=== PATIENT | female | born 1990 | race Caucasian/White ===

== ENCOUNTER 2024-08-28 11:17 | Emergency (ER) | payer MEDICARE, MEDICAID, SELFPAY ==
[2024-08-28] VITALS (38 sets, daily range): BP systolic 116–150; BP diastolic 67–105; PULSE 75–139; RESP 12–28; TEMP 36.9–37; O2SAT 96–100
--- NOTE | 2024-08-28 11:30 | RT.EKG_ITS ---
APPROVED REPORT Exam: Resting ECG Reason for Exam: high heart rate Patient Location: E HR:126 bpm ECG Measurements Heart Rate 126 AXIS PA 142 P 65 QRSd 93 QRS -9 QT 327 T 52 QTc 474 Conclusion Sinus tachycardia 126 no stemi
[2024-08-28 13:49] LABS: Abs Immature Grans 0.03 10^3/uL (0.0-0.06); Absolute Basophil Count 0.09 10^3/uL (0.0-0.2); Absolute Eosinophil Count 0.07 10^3/uL (0.0-0.7); Absolute Lymphocyte Count 3.29 10^3/uL (1.2-3.4); Absolute Monocyte Count 0.55 10^3/uL (0.1-0.8); Absolute Neutrophil Count 6.59 10^3/uL (1.2-6.7); Basophils % 0.8 %; Eosinophils % 0.7 %; HCT 43.6 % (36.0-46.0); HGB 15.2 g/dL (11.2-15.7); Immature Grans % 0.3 %; MCH 31.1 pg (27.0-33.0); MCHC 34.9 % (32.0-36.0); MCV 89 fL (80-95); MPV 9.6 fL (8.0-11.0); Monocytes % 5.2 %; Platelet Count 394 10^3/uL (130-400); RBC 4.88 10^6/uL (3.93-5.22); RDW 12.3 % (11.7-14.6); RDW-SD 40.3 fL; WBC 10.62 10^3/uL (4.4-10.8)
--- NOTE | 2024-08-28 14:09 | ED.GENADUL_ITS ---
Discharge Plan Disposition Patient Disposition: Home Condition: Good Discharge Details Clinical Impression: Postural orthostatic tachycardia syndrome [POTS] Primary Care Provider: Unknown,Unknown ED Provider: Eva Nunez Home Meds and New Rx's Prescriptions: Continued dextroamphetamine-amphetamine [Adderall XR] 25 mg capsule,extended release 24hr 25 mg PO DAILY Nurtec ODT 75 mg tablet,disintegrating 75 mg PO .as need PRN Rx Instructions: as a single dose clonazepam 0.25 mg tablet,disintegrating 0.25 mg PO DAILY ondansetron 4 mg tablet,disintegrating 4 mg PO Q6H cholecalciferol (vitamin D3) 25 mcg (1,000 unit) tablet 25 mcg PO DAILY Discharge Instructions Instructions: Orthostatic hypotension Additional Instructions: As we discussed, your labs are very reassuring here today. This includes your blood counts as well as your electrolytes, thyroid, liver, kidney. CT of your brain also look normal. I am concerned, based on how you responded with fluids, that you did have some dehydration and encourage you to continue continue doing increase your fluids. Please continue with previous recommendations regarding electrolyte supplementation continued care of your diagnoses. I have referred you to local primary care. Again, please discuss with them the need for your care team. If you develop any new or worsening symptoms please seek care urgently once again. Otherwise, please follow-up with primary care soon as possible. Discharge Data Discharge Date/Time-TO BE ENTERED AT DEPARTURE: 08/28/24 15:43 HPI General Date/Time Provider Initiated Documentation: 08/28/24 12:10 . Limitations to Documentation: no limitations . Information obtained by: patient, RN notes reviewed and old records reviewed (provided by patient) . History of Present Illness 33 year old F presents to the emergency department with the chief complaint of increased POTS symptoms, changes in these, on care team locally, described as moderate and similar to prior episodes, Quality is described as other (lightheaded, weak), Patient started experiencing this year(s) and it has been constant. No relieving factors improve symptom(s), No exacerbating factors reported . Patient notes headaches (associates with hx of migraines, none today), nausea/vomiting (nausea when pre-syncopal feeling) and weakness (generalized); denies chest pain, cough, fever/chills, loss of appetite, malaise, rash and shortness of breath. Patient did receive the following treatments prior to arrival, none Related Data Home Medications ?Medication ?Instructions ?Recorded ?Confirmed cholecalciferol (vitamin D3) 25 25 mcg PO DAILY 03/17/24 08/28/24 mcg (1,000 unit) tablet clonazepam 0.25 mg disintegrating 0.25 mg PO DAILY 03/17/24 08/28/24 tablet dextroamphetamine-amphetamine ER 25 mg PO DAILY 03/17/24 08/28/24 25 mg 24hr capsule,extend release (Adderall XR) ondansetron 4 mg disintegrating 4 mg PO Q6H 03/17/24 08/28/24 tablet rimegepant 75 mg disintegrating 75 mg PO .as need PRN 03/17/24 08/28/24 tablet (Nurtec ODT) Allergies Allergy/AdvReac Type Severity Reaction Status Date / Time duloxetine (From Cymbalta) Allergy Severe Swelling/Ed Verified 08/28/24 11:30 kamilah topiramate Allergy Severe Swelling/Ed Verified 08/28/24 11:30 kamilah diphenhydramine (From Allergy Intermediate Hives Verified 08/28/24 11:30 Benadryl Allergy) General Stated Complaint: GenMedical MARTA: 3 Review of Systems Constitutional Constitutional: Reports as per HPI, Denies chills, Reports fatigue, Denies fever(s) and Reports headache(s) Eyes Eyes: Reports as per HPI, Denies blurry vision and Denies change in vision ENT Ears, Nose, Mouth, and Throat: Reports headache(s) Cardiovascular Cardiovascular: Reports as per HPI, Denies chest pain, Denies radiating jaw, neck or arm pain and Denies dyspnea Respiratory Respiratory: Reports as per HPI, Denies chest congestion, Denies cough and Denies dyspnea Gastrointestinal Gastrointestinal: Reports as per HPI, Denies abdominal pain, Denies change in bowel habits, Denies nausea and Denies vomiting Musculoskeletal Musculoskeletal: Reports as per HPI, Denies back pain, Denies myalgias, Denies muscle cramps and Denies numbness Integumentary/Breasts Skin/Breast: Reports as per HPI and Denies rash Neurologic Neurologic: Reports as per HPI, Denies abnormal movements, Denies abnormal speech, Denies behavioral changes, Denies confusion, Reports headache(s), Denies localized weakness, Denies numbness and Denies sensory deficit Psychiatric Psychiatric: Denies behavioral changes and Denies confusion Endocrine Endocrine: Reports fatigue Exam Const General: cooperative, healthy appearing, uncomfortable, no acute distress, well developed and well groomed Nutritional Appearance: average body habitus and well nourished Orientation: alert, awake and oriented x3 [facility] Head: normal to inspection, no palpable skull fracture, normocephalic and atraumatic Ears: hearing grossly normal bilaterally and external ears normal General nose exam: external nose normal Mouth: oral mucosae normal and moist mucous membranes Throat: posterior oropharynx normal Eyes General: appearance normal, both eyes and all related structures Alignment and Position: alignment normal Periorbital: periorbital findings normal Eyelids: eyelids normal Sclera: sclerae normal Cornea: corneas normal Pupils: PERRL EOM: EOM intact bilaterally Neck Neck: normal visual inspection, full ROM, no lymphadenopathy and no meningeal signs Resp Effort & Inspection: normal respiratory effort, able to speak in complete sentences and no respiratory distress Auscultation: clear to auscultation bilaterally, no rales, no rhonchi and no wheezes Cardio Rate: regular rate Rhythm: regular rhythm Heart Sounds: S1 normal and S2 normal Skin General skin exam: no rashes or lesions noted Neuro General: patient alert, patient awake and patient oriented x3 Cranial Nerves: CN's II-XI intact bilaterally Cognition: normal cognition Speech: speech normal Gait: normal gait Motor: muscle tone normal throughout, strength 5/5 throughout, no pronator drift, no movement abnormalities noted and no fasciculations Sensory Exam: no sensory deficits noted Extrem General: normal to inspection, capillary refill normal, no pedal edema and no calf tenderness Course Vital Signs Vital signs: Vital Signs Temperature 36.9 C 08/28/24 11:24 Pulse 130 H 08/28/24 11:24 Respiratory Rate 18 08/28/24 11:24 Blood Pressure 150/105 H 08/28/24 11:24 Pulse Oximetry 98 08/28/24 11:24 Temperature 36.9 C 08/28/24 11:24 Temperature Source Oral 08/28/24 11:24 Pulse 96 H 08/28/24 13:57 Pulse 97 H 08/28/24 13:10 Respiratory Rate 18 08/28/24 11:24 Blood Pressure 120/67 08/28/24 13:57 Blood Pressure Position Sitting 08/28/24 11:24 Pulse Oximetry 98 02/24/25 11:24 Oxygen Delivery Method Room Air 08/28/24 11:24 Oxygen Flow Rate 0 08/28/24 11:24 Lab/Test Results Lab/Test Results: Laboratory Tests Range/Units 08/28/24 13:44 WBC (4.4-10.8) 10^3/uL 10.62 RBC (3.93-5.22) 10^6/uL 4.88 Hgb (11.2-15.7) g/dL 15.2 Hct (36.0-46.0) % 43.6 MCV (80-95) fL 89 MCH (27.0-33.0) pg 31.1 MCHC (32.0-36.0) % 34.9 RDW (11.7-14.6) % 12.3 Plt Count (130-400) 10^3/uL 394 MPV (8.0-11.0) fL 9.6 Immature Gran % % 0.3 Neutrophils % % 62.0 Lymphocytes % % 31.0 Monocytes % % 5.2 Eosinophils % % 0.7 Basophils % % 0.8 Nucleated RBC % (0.0-0.3) % 0.0 Absolute Neutrophils (1.2-6.7) 10^3/uL 6.59 Absolute Lymphocytes (1.2-3.4) 10^3/uL 3.29 Absolute Monocytes (0.1-0.8) 10^3/uL 0.55 Absolute Eosinophils (0.0-0.7) 10^3/uL 0.07 Absolute Basophils (0.0-0.2) 10^3/uL 0.09 POC- Test(urine) Negative Medical Decision Making Patient is a pleasant 33-year-old female that is new to the area, recently moved here from [place], presenting today with chief complaint of worsening autonomic dysfunction and POTS symptoms. Patient did provide a personally written account of her medical history as she states she has been struggling with mismanagement of her chronic diseases. Has history of arthritis, migraines, nonalcoholic fatty liver disease, genetic disorders, premenstrual dysmorphic disorder, insomnia, IBS, sciatica, obesity, POTS, dysautonomia, fibromyalgia, ankylosing spondylitis, anxiety, PTSD, social anxiety, panic disorder with agoraphobia, ADHD. Patient has not had any change in her medications recently. She reports that typically when she has her episodes of POTS that she becomes quickly lightheaded and then will have syncopal episode. More recently, her symptoms have been more drawnout and during these episodes she becomes nauseated and feel like she is skipping time. States that she has had multiple syncopal episodes recently, unclear if she may have struck her head but she does not believe that she has. She states that she has had concussion due to her syncopal episodes historically but recently if she has suffered from of these events it has been on a carpeted floor and she has not had any headache upon awakening. Patient has had lost significant amount of weight recently that has been through dietary changes. Patient does report that she has chronic pain, no acute change in this. Does have been having generalized weakness with been worsening over recent months. Patient does have history of migraines and has also had migraine activity, none today. On exam, patient appears anxious but otherwise Nontoxic. Hemodynamically stable. She was initially tachycardic in the 130s when I am evaluating the patient her heart rate comes down to around 80, particularly lowers when discussing her chronic medical conditions. She is afebrile and has not had any hypotension if anything, patient's been hypertensive. Orthostatics were positive. She has normal neurologic exam. She does have some slight weakness but this seems to be generalized and more associated with effort than true weakness. She is able to ambulate unassisted. No indication suggest meningitis, encephalitis. As she has had a few syncopal episodes recently, I did consider a intracranial hemorrhage or other etiology. Will obtain a CT scan. This is fairly low suspicion particularly as she has not had any headaches today. Also considered other visual abnormality such as electrolyte abnormality, dehydration. She does not appear septic. Will give a liter of fluids. Obtain baseline blood work, also considered thyroid and will assess for this. CT scan regular radiology, no acute abnormality. Her CBC, CMP and TSH are all within normal limits. I discussed these findings with the patient. Her heart rate continues to go down after some fluids and she is feeling very reassured. Patient does seem very anxious, particular in her chronic medical conditions. Thanks would benefit from a local primary care as well as more involved care team such as a team that she had when she was in [place]. A referral to local primary care has been sent. I am hoping that they will help to coordinate so the patient can have best care possible for her chronic conditions. Return precautions were discussed. All of her questions and concerns were addressed and patient is in agreement this plan. This documentation was generated using e[employer]ation system, please disregard any oddities of phrase or misspellings. Quality:SDOH Health Related Social Needs: No Data to Display PFSH All Active Problems (Updated 08/28/24 @ 15:23 by ANDIE Mahoney) Postural orthostatic tachycardia syndrome [POTS] (Acute) Social History Smoking/Tobacco Use Status: Never Smoking risk assessment performed?: Yes Alcohol Intake: never Substance use type: does not use
[2024-08-28 14:12] LABS: ALT 28 U/L (14-59); AST 17 U/L (15-37); Alkaline Phosphatase 89 U/L (46-116); Anion Gap 6.9 mmol/L (3-11); BUN 13 mg/dL (7-18); Bilirubin, Total 0.31 mg/dL (0.2-1.0); CO2 29.1 mmol/L (21.0-32.0); CREATININE 0.8 mg/dL (0.55-1.02); Calcium 9.7 mg/dL (8.5-10.1); Chloride 106 mmol/L (98-107); Estimated GFR 99.09 (mL/min/1.73m2); Glucose 86 mg/dL (74-106); Magnesium 2.2 mg/dL (1.8-2.4); Potassium 3.7 mmol/L (3.5-5.1); Sodium 142 mmol/L (136-145); TSH (W/Ref FT4) 1.78 uIU/mL (0.36-3.74); Total Protein 7.7 g/dL (6.4-8.2)
[2024-08-28] MEDS: Normal Saline 1,000 ML 1000 ML IV (14:21)
--- NOTE | 2024-08-28 14:30 | DI.CT_ITS ---
Exam(s) CT HEAD WO EXAM: CT HEAD WO CLINICAL HISTORY: fall. TECHNIQUE: Imaging Protocol: Axial computed tomography images with coronal and sagittal reformatted images were created and reviewed COMPARISON: No exams were available for comparison FINDINGS: Ventricles and Extra axial spaces: Normal in size and morphology for the patient's age. Hemorrhage: None. Cerebral parenchyma: No evidence of acute infarct or mass. Midline shift: None. Brainstem/Cerebellum: Normal. Calvarium: Normal. Visualized Paranasal sinuses:Clear. Mastoids: Clear. Soft Tissues: Unremarkable. ORBITS: Unremarkable. PITUITARY: Not enlarged. IMPRESSION: No acute intracranial process. RADIATION DOSE DELIVERED: 910.95mGy.cm Total DLP DATA REPOSITORY: All CT scans at this facility are submitted to the National Radiology Data Registry (NRDR) Dose Index Registry (DIR) with the [employer] ([employer]). RADIATION OPTIMIZATION: All CT scans at this facility use at least one of these dose optimization te chniques: automated exposure control; mA and/or kV adjustment per patient size (includes targeted exa ms where dose is matched to clinical indication); or iterative reconstruction.
== END 2024-08-28 15:43 | disposition home or self-care (01) ==
PROVIDERS: Emergency Provider Physician Assistant
DX: G90.A Postural orthostatic tachycardia syndrome [POTS] (principal); R11.2 Nausea with vomiting, unspecified; K58.9 Irritable bowel syndrome, unspecified; F41.8 Other specified anxiety disorders
CPT/HCPCS: 80053; 81025; 87426; 93005; 96360; 99285; 70450; 83735; 84443; 85025; 93010; 99284

== ENCOUNTER 2024-10-09 10:25 | Outpatient (REF) | payer MEDICARE, MEDICAID, SELFPAY ==
[2024-10-09 14:53] LABS: HCT 44.1 % (36.0-46.0); MCH 30.6 pg (27.0-33.0); MCV 90 fL (80-95); MPV 10.3 fL (8.0-11.0); Platelet Count 398 10^3/uL (130-400); RDW 12.6 % (11.7-14.6); RDW-SD 41.6 fL; WBC 7.28 10^3/uL (4.4-10.8)
[2024-10-09 15:56] LABS: ALT 30 U/L (14-59); AST 17 U/L (15-37); Albumin 3.9 g/dL (3.4-5.0); Alkaline Phosphatase 74 U/L (46-116); Anion Gap 8.4 mmol/L (3-11); BUN 18 mg/dL (7-18); Bilirubin, Total 0.5 mg/dL (0.2-1.0); CO2 26.6 mmol/L (21.0-32.0); CREATININE 0.7 mg/dL (0.55-1.02); Calcium 9.9 mg/dL (8.5-10.1); Chloride 107 mmol/L (98-107); Estimated GFR 116.31 (mL/min/1.73m2); Ferritin 179 ng/mL (8-252); Folate 7.2 ng/mL (8.6-20.0); Glucose 92 mg/dL (74-106); Sodium 142 mmol/L (136-145); Total Protein 7.1 g/dL (6.4-8.2); Vitamin B12 601 pg/mL (193-986); Vitamin D 25 Total 46 ng/mL (30-100)
== END 2024-10-09 10:26 | disposition home or self-care (01) ==
LOC: NCHCN 10:25
PROVIDERS: PCP Internal Medicine; Visit Provider Internal Medicine
DX: R89.8 Other abnormal findings in specimens from other organs, systems and tissues (principal); E55.9 Vitamin D deficiency, unspecified
CPT/HCPCS: 80053; 82306; 85027; 82607; 82728; 82746

== ENCOUNTER 2025-01-11 16:27 | Emergency (ER) | payer MEDICARE, MEDICAID, SELFPAY ==
[2025-01-11 16:28] VITALS: BP 150/111; PULSE 96; RESP 14; TEMP 37.1; O2SAT 95
--- NOTE | 2025-01-11 16:30 | RT.EKG_ITS ---
APPROVED REPORT Exam: Resting ECG Reason for Exam: syncope Patient Location: E HR:97 bpm ECG Measurements Heart Rate 97 AXIS VT 157 P 65 QRSd 96 QRS -19 QT 362 T 46 QTc 460 Conclusion Sinus rhythm...normal P axis, V-rate 60- 99 I have reviewed and interpreted ECG and agree with software generated interpretation.
[2025-01-11 17:03] VITALS: PULSE 89; O2SAT 97
[2025-01-11 17:10] VITALS: PULSE 95; RESP 25; O2SAT 98
[2025-01-11 17:12] VITALS: BP 119/66; PULSE 91; PULSE 94; RESP 24; O2SAT 98
[2025-01-11 17:15] VITALS: RESP 20
[2025-01-11 17:22] LABS: Abs Immature Grans 0.02 10^3/uL (0.0-0.06); HCT 39.7 % (36.0-46.0); HGB 13.7 g/dL (11.2-15.7); Immature Grans % 0.2 %; MCH 30.7 pg (27.0-33.0); MCHC 34.5 % (32.0-36.0); MCV 89 fL (80-95); MPV 9.4 fL (8.0-11.0); Platelet Count 393 10^3/uL (130-400); RBC 4.46 10^6/uL (3.93-5.22); RDW 12.6 % (11.7-14.6); RDW-SD 41.0 fL; WBC 9.66 10^3/uL (4.4-10.8)
[2025-01-11 17:37] LABS: INR 1.0 (0.9-1.1); PTT Activated 25.4 sec (20.6-30.2); Prothrombin Time 9.9 sec (9.1-11.1)
--- NOTE | 2025-01-11 17:39 | W.ED.GENAD ---
Discharge Plan Disposition Patient Disposition: Home Condition: Good Discharge Details Clinical Impression: Encounter for medical assessment, Anxiety Primary Care Provider: Ibeth Morris ED Provider: Louis Almeida Home Meds and New Rx's Prescriptions: No Action dextroamphetamine-amphetamine [Adderall XR] 25 mg capsule,extended release 24hr 25 mg PO DAILY Nurtec ODT 75 mg tablet,disintegrating 75 mg PO .as need PRN Rx Instructions: as a single dose clonazepam 0.25 mg tablet,disintegrating 0.25 mg PO DAILY PRN ondansetron 4 mg tablet,disintegrating 4 mg PO Q6H PRN cholecalciferol (vitamin D3) 25 mcg (1,000 unit) tablet 25 mcg PO DAILY Discharge Instructions Instructions: Diazepam Additional Instructions: At this time your workup has returned reassuring. There is no evidence of blood clot, heart attack, electrolyte abnormality of significance, cardiac strain, or thyroid dysfunction. Please continue to drink plenty of fluids. Please take a single 5 mg tablet of the Valium tonight to help sleep and rest. Do not take this in conjunction with clonazepam. Please follow-up closely with your primary care provider and neurologist at [facility]. If you notice any worsening of your symptoms, or any new symptoms such as vomiting, diarrhea, fever, chills, shortness of breath, chest pain, numbness, weakness, or fainting , please return immediately to the emergency department for reevaluation. Please follow up with your primary care provider as soon as possible for reassessment and reevaluation. As always, it was a pleasure participating in your medical care today. Referrals: Ibeth Morris [Primary Care Provider, Medicine] [facility] General Date/Time Provider Initiated Documentation: 01/11/25 16:35. HPI Narrative: This is a 34-year-old female with a past medical history of 13 allergies including Benadryl which causes hives and itching, and an additional past medical history of headaches, PTSD, fibromyalgia, anxiety, POTS, hemochromatosis, irritable bowel syndrome, ankylosing spondylitis, polycystic ovarian syndrome, nonalcoholic fatty liver disease, ADHD, borderline personality disorder, who presents today for evaluation of chest pain and anxiety. Patient is followed by her primary care provider Dr. Vazquez, and also [facility] neurology. She has had extensive workups, including MRI, recently had significant blood work in the last few days, and is being monitored closely. She does have clonazepam 0.25 mg to take daily as needed as needed for anxiety attacks. She has a family history positive for blood clots. She presents today for increasing chest pain and anxiety. She states that for the last few days she has had increased panic attacks, felt like her heart was racing, felt lightheaded, and felt unwell. This has been more frequent and more atypical than normal. She denies any recent long trips surgeries or procedures. She does admit to a recent MRI. She admits to mild left-sided chest achiness which may have a pleuritic component. She denies any calf pain or actual complete syncope. She denies any new medications. She denies any dietary changes. No other complaints at this time. She states that her goals today are to make sure there is nothing emergent going on. Related Data Home Medications ?Medication ?Instructions ?Recorded ?Confirmed cholecalciferol (vitamin D3) 25 25 mcg PO DAILY 03/17/24 01/11/25 mcg (1,000 unit) tablet clonazepam 0.25 mg disintegrating 0.25 mg PO DAILY PRN 03/17/24 01/11/25 tablet dextroamphetamine-amphetamine ER 25 mg PO DAILY 03/17/24 01/11/25 25 mg 24hr capsule,extend release (Adderall XR) ondansetron 4 mg disintegrating 4 mg PO Q6H PRN 03/17/24 01/11/25 tablet rimegepant 75 mg disintegrating 75 mg PO .as need PRN 03/17/24 01/11/25 tablet (Nurtec ODT) Allergies Allergy/AdvReac Type Severity Reaction Status Date / Time duloxetine (From Cymbalta) Allergy Severe Swelling/Ed Verified 01/11/25 16:34 kamilah topiramate Allergy Severe Swelling/Ed Verified 01/11/25 16:34 kamilah diphenhydramine (From Allergy Intermediate Hives Verified 01/11/25 16:34 Benadryl Allergy) General Stated Complaint: GenMedical MARTA: 3 Exam Narrative Exam Narrative: 1.Const: Well-nourished, Well-developed, appearing stated age 2.Eyes: PERRL, no conjunctival injection, and symmetrical lids. 3.ENT: Atraumatic external nose and ears. Mildly dry MM. Neck: Symmetric, trachea midline, No thyromegaly. 4.CVS: +S1/S2, Peripheral pulses 2+ and equal in all extremities. Brisk capillary refill in all extremities. 5.RESP: Unlabored respiratory effort. Clear to auscultation bilaterally. No wheezes rales or rhonchi 6.GI: Soft, Nontender/Nondistended, No hepatosplenomegaly. No guarding or rebound. 7.MSK: Normocephalic/Atraumatic, Extremities w/o deformity or ttp No cyanosis or clubbing, Normal movement of all extremities. No calf tenderness 8.Skin: Warm, Dry. No rashes or lesions. 9.Neuro: park interpreter II-XII grossly intact. Sensation grossly intact, no focal neurologic deficits. 10.Psych: (AAO) x3. Appropriate mood and affect Course Vital Signs Vital signs: Vital Signs Temperature 37.1 C 01/11/25 16:28 Pulse 96 H 01/11/25 16:28 Respiratory Rate 14 01/11/25 16:28 Blood Pressure 150/111 H 01/11/25 16:28 Pulse Oximetry 95 01/11/25 16:28 Temperature 37.1 C 01/11/25 16:28 Temperature Source Tympanic 01/11/25 16:28 Pulse 91 H 01/11/25 17:12 Pulse 94 H 01/11/25 17:12 Respiratory Rate 20 01/11/25 17:15 Respiratory Effort Normal 01/11/25 17:15 Respiratory Depth Normal 01/11/25 17:15 Respiratory Pattern Normal 01/11/25 17:15 Blood Pressure 119/66 01/11/25 17:12 Blood Pressure Mean 83 01/11/25 17:12 Pulse Oximetry 98 01/11/25 17:12 Oxygen Delivery Method Room Air 01/11/25 16:28 Oxygen Flow Rate 0 01/11/25 16:28 Pain Level 5 01/11/25 16:28 Lab/Test Results Lab/Test Results: Laboratory Tests Range/Units 01/11/25 17:09 WBC (4.4-10.8) 10^3/uL 9.66 RBC (3.93-5.22) 10^6/uL 4.46 Hgb (11.2-15.7) g/dL 13.7 Hct (36.0-46.0) % 39.7 MCV (80-95) fL 89 MCH (27.0-33.0) pg 30.7 MCHC (32.0-36.0) % 34.5 RDW (11.7-14.6) % 12.6 Plt Count (130-400) 10^3/uL 393 MPV (8.0-11.0) fL 9.4 Immature Gran % % 0.2 Neutrophils % % 65.8 Lymphocytes % % 27.6 Monocytes % % 4.9 Eosinophils % % 0.8 Basophils % % 0.7 Nucleated RBC % (0.0-0.3) % 0.0 Absolute Neutrophils (1.2-6.7) 10^3/uL 6.35 Absolute Lymphocytes (1.2-3.4) 10^3/uL 2.67 Absolute Monocytes (0.1-0.8) 10^3/uL 0.47 Absolute Eosinophils (0.0-0.7) 10^3/uL 0.08 Absolute Basophils (0.0-0.2) 10^3/uL 0.07 Medical Decision Making This is a 34-year-old female with a past medical history of 13 allergies including Benadryl which causes hives and itching, and an additional past medical history of headaches, PTSD, fibromyalgia, anxiety, POTS, hemochromatosis, irritable bowel syndrome, ankylosing spondylitis, polycystic ovarian syndrome, nonalcoholic fatty liver disease, ADHD, borderline personality disorder, who presents today for evaluation of chest pain and anxiety. Patient is followed by her primary care provider Dr. Vazquez, and also [facility] neurology. She has had extensive workups, including MRI, recently had significant blood work in the last few days, and is being monitored closely. She does have clonazepam 0.25 mg to take daily as needed as needed for anxiety attacks. She has a family history positive for blood clots. She presents today for increasing chest pain and anxiety. She states that for the last few days she has had increased panic attacks, felt like her heart was racing, felt lightheaded, and felt unwell. This has been more frequent and more atypical than normal. She denies any recent long trips surgeries or procedures. She does admit to a recent MRI. She admits to mild left-sided chest achiness which may have a pleuritic component. She denies any calf pain or actual complete syncope. She denies any new medications. She denies any dietary changes. No other complaints at this time. She states that her goals today are to make sure there is nothing emergent going on. Exam demonstrates well-appearing female, no acute distress. Vital signs stable aside from mild hypertension mild tachycardia which improved dependently while here. Differential includes anxiety, dehydration, but also includes potential PE or clot, less likely ACS. Less likely thyroid dysfunction. Will evaluate for these etiologies, monitor closely and reassess. 8:06 PM Patient's vital signs remain notably stable, laboratory workup shows no electrolyte abnormality, normal CBC, normal troponins x 2, normal D-dimer, normal thyroid function. Normal proBNP showing no signs of cardiac strain. Patient remains clinically stable. Symptoms appear clinically inconsistent with PE, dissection, severe cardiac dysrhythmia, hyper or hypothyroidism. Anxiety certainly may be a component, POTS and symptoms of which may be a component. However at this stage there does not appear to be any evidence of acute emergent life-threatening etiology. Patient is stable for discharge. Bedside limited echo demonstrates normal cardiac motility, no pericardial effusion or tamponade, normal lung sliding with no evidence of pneumothorax. Patient will be discharged home. Due to her significant difficulty sleeping as of late we will give her three 5 mg Valium tablets, 1 to be taken each night to help sleep, and we have recommended that she not take any of her clonazepam in the meantime or in conjunction with this. Recommend continued close follow-up with [facility] neurology. Discussed red flags for which to return. I have extensively reviewed the treatment plan and discharge instructions with the patient. I have addressed all patient concerns at this time. The patient was made aware of what symptoms to monitor for that would warrant a return to the emergency department. Discussed the plan with the patient, they demonstrate verbal understanding and agreement with our assessment and plan at this time. The documentation in this chart was dictated using [employer] dictation software. Please excuse any dictation errors. PFSH All Active Problems (Updated 01/11/25 @ 19:21 by Louis Almeida DO) Anxiety (Chronic) Encounter for medical assessment (Acute) Social History Smoking/Tobacco Use Status: Never Smoking risk assessment performed?: Yes Alcohol Intake: never Drug use: Never Substance use type: does not use Do you feel safe at home: Yes Do you feel safe in your relationship?: Yes POCUS Exam (ED) Limited Cardiac Exam DATE OF EXAM: 01/11/25 TIME OF EXAM: 20:05 PROVIDER THAT PERFORMED THE STUDY: Louis Almeida IS THIS A REPEAT EXAM DURING THIS ENCOUNTER: no REASON FOR EXAM: Chest pain VISUALIZED STRUCTURES: Left atrium, Left ventricle, Right ventricle, Mitral valve and Interventricular septum VIEW OBTAINED: Parasternal long-axis and Parasternal short-axis PERTINENT FINDINGS/IMPRESSION: No apparent abnormalities Exam complete Limited Thoracic Lung Exam DATE OF EXAM: 01/11/25 TIME OF EXAM: 20:05 PROVIDER THAT PERFORMED THE STUDY: Louis Almeida IS THIS A REPEAT EXAM DURING THIS ENCOUNTER: No REASON FOR EXAM: Chest pain VISUALIZED STRUCTURES: right anterior and left anterior PERTINENT FINDINGS/
[2025-01-11 18:02] LABS: D-Dimer 143 ng/mlFEU (<500)
[2025-01-11] MEDS: Lactated Ringers 1,000 ML 1000 ML IV (18:03)
[2025-01-11 18:38] LABS: Troponin I < 4 ng/L (<or=51)
[2025-01-11 18:41] LABS: ALT 21 U/L (14-59); AST 16 U/L (15-37); Albumin 3.4 g/dL (3.4-5.0); Alkaline Phosphatase 61 U/L (46-116); Anion Gap 7.6 mmol/L (3-11); BUN 15 mg/dL (7-18); Bilirubin, Total 0.3 mg/dL (0.2-1.0); CO2 25.4 mmol/L (21.0-32.0); Calcium 8.5 mg/dL (8.5-10.1); Chloride 108 mmol/L (98-107); Estimated GFR 125.36 (mL/min/1.73m2); Glucose 101 mg/dL (74-106); NT-proBNP 90 pg/mL (<300); Potassium 3.8 mmol/L (3.5-5.1); Sodium 141 mmol/L (136-145); Total Protein 6.4 g/dL (6.4-8.2)
[2025-01-11 18:42] LABS: Troponin I < 4 ng/L (<or=51)
[2025-01-11 19:15] LABS: TSH (W/Ref FT4) 0.89 uIU/mL (0.36-3.74)
[2025-01-11 20:08] VITALS: BP 123/84; PULSE 85; RESP 15; O2SAT 99
[2025-01-11] MEDS: diazePAM 5 MG TAB 15 MG PO (20:08)
== END 2025-01-11 20:15 | disposition home or self-care (01) ==
PROVIDERS: Emergency Provider Student in an Organized Health Care Education/Training Program; PCP Internal Medicine
DX: F41.9 Anxiety disorder, unspecified (principal); R07.9 Chest pain, unspecified; Z79.899 Other long term (current) drug therapy
CPT/HCPCS: 76604; 80053; 81025; 93005; 93308; 96360; 99285; 83880; 84443; 84484; 85025; 85379; 85610; 85730; 93010